=== PATIENT | female | born 1990 | race Caucasian/White ===

== ENCOUNTER → 2018-01-11 | Outpatient (REF) | payer BC ==
[2018-01-11 14:41] LABS: HCG, SERUM QUANTITATIVE 12608 MIU/ML
[2018-01-11 14:47] LABS: HEMATOCRIT 36.7 % (36.0-47.0); HEMOGLOBIN 12.6 g/dl (12.0-16.0); MEAN CORPUSCULAR HEMOGLOBIN 29.6 pg (27.0-33.0); MEAN CORPUSCULAR HGB CONC 34.3 g/dl (32.0-36.5); MEAN CORPUSCULAR VOLUME 86.2 fl (80.0-96.0); PLATELET COUNT, AUTOMATED 304 10^3/uL (150-450); RED BLOOD COUNT 4.26 10^6/uL (4.00-5.40); RED CELL DISTRIBUTION WIDTH 12.2 % (11.5-14.5); WHITE BLOOD COUNT 6.2 10^3/uL (4.0-10.0)
[2018-01-12 10:23] LABS: RUBELLA IgG QUALITATIVE IMMUNE (IMMUNE)
[2018-01-12 10:49] LABS: HEPATITIS B SURFACE ANTIGEN NEGATIVE (NEGATIVE)
[2018-01-12 10:53] LABS: HIV 1&2 SCREEN CENTAUR NEGATIVE (NEGATIVE)
== END ==
LOC: M LAB REF 13:19
DX: O36.80X0 Pregnancy with inconclusive fetal viability, not applicable or unspecified (principal); Z3A.00 Weeks of gestation of pregnancy not specified
CPT/HCPCS: 86762

== ENCOUNTER 2018-04-15 19:09 | Emergency (ER) | payer OTHER, BC, MEDICAID ==
[2018-04-15 20:40] LABS: APPEARANCE, URINE HAZY (CLEAR); BACTERIA, URINE AUTO 1+ (NEGATIVE); BILIRUBIN, URINE AUTO NEGATIVE (NEGATIVE); BLOOD, URINE BLOOD NEGATIVE (NEGATIVE); COLOR, URINE YELLOW (YELLOW); GLUCOSE, URINE (UA) AUTO NEGATIVE (NEGATIVE); KETONE, URINE AUTO NEGATIVE (NEGATIVE); LEUKOCYTE ESTERASE, URINE AUTO TRACE (NEGATIVE); MUCUS, URINE SMALL (NEGATIVE); NITRITE, URINE AUTO NEGATIVE (NEGATIVE); PROTEIN, URINE AUTO NEGATIVE (NEGATIVE); RBC, URINE AUTO 2 /HPF (0-3); SPECIFIC GRAVITY URINE AUTO 1.024 (1.002-1.035); SQUAMOUS EPITHELIAL CELL UR AU 1 /HPF (0-6); WBC, URINE AUTO 3 /HPF (0-3)
== END 2018-04-15 21:08 | disposition home or self-care (01) ==
LOC: M ED 19:09
DX: Z04.1 Encounter for examination and observation following transport accident (principal); O9A.212 Injury, poisoning and certain other consequences of external causes complicating pregnancy, second trimester; S70.00XA Contusion of unspecified hip, initial encounter; V43.62XA Car passenger injured in collision with other type car in traffic accident, initial encounter; Y92.410 Unspecified street and highway as the place of occurrence of the external cause; Z3A.19 19 weeks gestation of pregnancy
CPT/HCPCS: 76815

== ENCOUNTER → 2018-06-16 | Outpatient (CLI) | payer MEDICAID ==
[2018-06-16 11:43] LABS: HEMATOCRIT 31.1 % (36.0-47.0); HEMOGLOBIN 10.5 g/dl (12.0-15.5); MEAN CORPUSCULAR HEMOGLOBIN 29.7 pg (27.0-33.0); MEAN CORPUSCULAR HGB CONC 33.8 g/dl (32.0-36.5); MEAN CORPUSCULAR VOLUME 88.1 fl (80.0-96.0); PLATELET COUNT, AUTOMATED 230 10^3/uL (150-450); RED BLOOD COUNT 3.53 10^6/uL (4.00-5.40); RED CELL DISTRIBUTION WIDTH 12.4 % (11.5-14.5); WHITE BLOOD COUNT 7.5 10^3/uL (4.0-10.0)
[2018-06-16 13:10] LABS: GLUCOSE CHALLENGE TEST 1 HOUR 128 MG/DL (LESS THAN 140)
== END ==
LOC: M LAB 09:52
DX: Z36.89 Encounter for other specified antenatal screening (principal); Z3A.00 Weeks of gestation of pregnancy not specified
CPT/HCPCS: 82950

== ENCOUNTER → 2018-08-19 | Outpatient (REF) | payer MEDICAID | LOC: M LAB REF 12:54 | DX: Z34.83 Encounter for supervision of other normal pregnancy, third trimester (principal); Z3A.00 Weeks of gestation of pregnancy not specified | CPT/HCPCS: 87081 ==

== ENCOUNTER 2018-08-24 16:46 | Inpatient (IN) | payer MEDICAID ==
[2018-08-24] MEDS: miSOPROStol 50 MCG 1/2 TAB (S0191) PO ×2 (18:46→23:04)
[2018-08-24] MEDS: LACTATED RINGER'S 1000 ML IV (18:46)
[2018-08-24 18:47] LABS: HEMATOCRIT 31.9 % (36.0-47.0); HEMOGLOBIN 10.8 g/dl (12.0-15.5); MEAN CORPUSCULAR HEMOGLOBIN 28.3 pg (27.0-33.0); MEAN CORPUSCULAR HGB CONC 33.9 g/dl (32.0-36.5); MEAN CORPUSCULAR VOLUME 83.7 fl (80.0-96.0); PLATELET COUNT, AUTOMATED 267 10^3/uL (150-450); RED BLOOD COUNT 3.81 10^6/uL (4.00-5.40); WHITE BLOOD COUNT 8.5 10^3/uL (4.0-10.0)
[2018-08-24 19:02] LABS: APPEARANCE, URINE CLEAR (CLEAR); BACTERIA, URINE AUTO 2+ (NEGATIVE); BILIRUBIN, URINE AUTO NEGATIVE (NEGATIVE); BLOOD, URINE BLOOD NEGATIVE (NEGATIVE); COLOR, URINE YELLOW (YELLOW); GLUCOSE, URINE (UA) AUTO NEGATIVE (NEGATIVE); KETONE, URINE AUTO TRACE mg/dL (NEGATIVE); LEUKOCYTE ESTERASE, URINE AUTO NEGATIVE (NEGATIVE); MUCUS, URINE SMALL (NEGATIVE); NITRITE, URINE AUTO NEGATIVE (NEGATIVE); PROTEIN, URINE AUTO NEGATIVE (NEGATIVE); RBC, URINE AUTO 2 /HPF (0-3); SPECIFIC GRAVITY URINE AUTO 1.011 (1.002-1.035); SQUAMOUS EPITHELIAL CELL UR AU 0 /HPF (0-6); UROBILINOGEN, URINE AUTO 0.2 mg/dL (0.0-2.0); WBC, URINE AUTO 1 /HPF (0-3)
[2018-08-24 19:08] LABS: ALT/SGPT 11 U/L (12-78); AST/SGOT 7 U/L (7-37); BILIRUBIN,TOTAL 0.2 MG/DL (0.2-1.0); CREATININE FOR GFR 0.47 MG/DL (0.55-1.30); GLOMERULAR FILTRATION RATE > 60.0 (>60); URIC ACID 3.2 MG/DL (2.6-6.0)
[2018-08-24 20:34] LABS: LDH LACTATE DEHYDROGENASE 222 U/L (84-246)
[2018-08-25] MEDS: LR 1,000 ML IV ×2 (01:57→07:44)
[2018-08-25] MEDS: miSOPROStol 50 MCG 1/2 TAB (S0191) PO (03:52)
[2018-08-25] MEDS ORDERED: FENTANYL 2MCG/ML ROPIVACAINE 0.2% IN 0.9% NACL 200ML IVBAG As Ordered (05:30)
[2018-08-25] MEDS ORDERED: diphenhydrAMINE INJ 50MG/ML VIAL (J1200) IV (05:40)
[2018-08-25] MEDS ORDERED: NALOXONE INJ 0.4 MG/1 ML VIAL (J2310) IV (05:40)
[2018-08-25] MEDS ORDERED: EPIDURAL COMMENT XX (05:40)
[2018-08-25] MEDS ORDERED: EPIDURAL/PCA KEYS XX (05:40)
[2018-08-25] MEDS ORDERED: REFRIGERATOR IV KEYS XX (05:40)
[2018-08-25] MEDS ORDERED: LACTATED RINGER'S 1000 ML IV (05:40)
[2018-08-25] MEDS ORDERED: ONDANSETRON 4MG/2ML VIAL (J2405) IV (05:40)
[2018-08-25] MEDS: FENTANYL/ROPIVACAINE/NACL BAG 200 ML EPIDURAL (05:40)
[2018-08-25] MEDS: ePHEDrine SULFATE 25 MG/5 ML(5MG/ML) SYRINGE IV ×2 (07:09→07:12)
[2018-08-25] MEDS: OXYTOCIN DRIP 30 UNITS in APPROPRIATE DILUENT 1 EA IV ×2 (08:47→12:22)
[2018-08-25] MEDS ORDERED: METHYLERGONOVINE MALEATE 0.2 MG TAB PO (12:30)
[2018-08-25] MEDS ORDERED: RHOGAM 300 MCG (1500 IU) INJ (J2790) IM (12:30)
[2018-08-25] MEDS ORDERED: MEASLES,MUMPS,RUBELLA VACCINE INJ (MMR-II) (90707) SC (12:30)
[2018-08-25] MEDS ORDERED: DIBUCAINE 1% OINTMENT 30GM TOP (12:30)
[2018-08-25] MEDS ORDERED: ANUSOL HC CREAM 30GM TOP (12:30)
[2018-08-25] MEDS ORDERED: DOCUSATE SODIUM 100 MG CAP PO (12:30)
[2018-08-25] MEDS: IBUPROFEN 800 MG TAB PO (20:11)
[2018-08-26] MEDS: PRENATAL VITAMINS CHEWABLE TABLET PO (09:25)
[2018-08-26] MEDS: IBUPROFEN 800 MG TAB PO ×2 (09:33→17:55)
[2018-08-27] MEDS: PRENATAL VITAMINS CHEWABLE TABLET PO (07:35)
[2018-08-27] MEDS: ACETAMINOPHEN 500 MG TAB PO (07:35)
[2018-08-27] MEDS: INFLUENZA QUADRIVALENT PF VACCINE 0.5ML SYRINGE (90686) IM (08:39)
== END 2018-08-27 11:03 | disposition home or self-care (01) | DRG 560 ==
LOC: M LDO 16:46 → M OBS 08-25 15:13 → M LDI 17:38
PROC: 3E0P7GC Introduction of Other Therapeutic Substance into Female Reproductive, Via Natural or Artificial Opening (ICD-10-PCS; 2018-08-24)
PROC: 10E0XZZ Delivery of Products of Conception, External Approach (ICD-10-PCS; principal; 2018-08-25)
PROC: 0KQM0ZZ Repair Perineum Muscle, Open Approach (ICD-10-PCS; 2018-08-25)
DX: O41.03X0 Oligohydramnios, third trimester, not applicable or unspecified (principal); O70.1 Second degree perineal laceration during delivery; Z3A.37 37 weeks gestation of pregnancy; Z37.0 Single live birth

== ENCOUNTER 2018-09-30 09:40 | Inpatient (IN) | payer MEDICAID ==
[2018-09-30] MEDS: NS 1,000 ML IV (10:44)
[2018-09-30] MEDS: KETOROLAC 30 MG/ML VIAL (J1885) IV (10:44)
[2018-09-30] MEDS: ONDANSETRON 4MG/2ML VIAL (J2405) IV (10:45)
[2018-09-30 11:15] LABS: BASO % 0.2 % (0.0-1.0); HEMATOCRIT 36.9 % (36.0-47.0); HEMOGLOBIN 12.3 g/dl (12.0-15.5); IMMATURE GRANULOCYTE % 0.4 % (0-3.0); LYMPH # 0.9 10^3/uL (1.5-6.5); LYMPH % 6.8 % (24.0-44.0); MEAN CORPUSCULAR HEMOGLOBIN 27.3 pg (27.0-33.0); MEAN CORPUSCULAR HGB CONC 33.3 g/dl (32.0-36.5); MEAN CORPUSCULAR VOLUME 81.8 fl (80.0-96.0); MONO # 0.5 10^3/uL (0.0-0.8); MONO % 3.7 % (0.0-5.0); NEUTROPHILS # 12.1 10^3/uL (1.8-7.7); NEUTROPHILS % 88.9 % (36.0-66.0); PLATELET COUNT, AUTOMATED 311 10^3/uL (150-450); RED BLOOD COUNT 4.51 10^6/uL (4.00-5.40); RED CELL DISTRIBUTION WIDTH 12.5 % (11.5-14.5); WHITE BLOOD COUNT 13.6 10^3/uL (4.0-10.0)
[2018-09-30 11:40] LABS: APPEARANCE, URINE CLEAR (CLEAR); BACTERIA, URINE AUTO NEGATIVE (NEGATIVE); BILIRUBIN, URINE AUTO NEGATIVE (NEGATIVE); BLOOD, URINE BLOOD NEGATIVE (NEGATIVE); COLOR, URINE YELLOW (YELLOW); GLUCOSE, URINE (UA) AUTO NEGATIVE (NEGATIVE); KETONE, URINE AUTO TRACE mg/dL (NEGATIVE); LEUKOCYTE ESTERASE, URINE AUTO NEGATIVE (NEGATIVE); MUCUS, URINE SMALL (NEGATIVE); NITRITE, URINE AUTO NEGATIVE (NEGATIVE); PROTEIN, URINE AUTO 1+ mg/dL (NEGATIVE); RBC, URINE AUTO 0 /HPF (0-3); SPECIFIC GRAVITY URINE AUTO 1.021 (1.002-1.035); SQUAMOUS EPITHELIAL CELL UR AU 3 /HPF (0-6); UROBILINOGEN, URINE AUTO 0.2 mg/dL (0.0-2.0); WBC, URINE AUTO 1 /HPF (0-3)
[2018-09-30 11:46] LABS: ALBUMIN 3.8 GM/DL (3.2-5.2); ALKALINE PHOSPHATASE 87 U/L (45-117); ALT/SGPT 26 U/L (12-78); AMYLASE 52 U/L (25-115); ANION GAP 9 MEQ/L (8-16); AST/SGOT 15 U/L (7-37); BILIRUBIN,TOTAL 0.3 MG/DL (0.2-1.0); BLOOD UREA NITROGEN 8 MG/DL (7-18); C REACTIVE PROTEIN QUANTITATIV 1.13 MG/DL (0.00-0.30); CALCIUM LEVEL 9.3 MG/DL (8.5-10.1); CARBON DIOXIDE LEVEL 26 MEQ/L (21-32); CHLORIDE LEVEL 104 MEQ/L (98-107); CREATININE FOR GFR 0.76 MG/DL (0.55-1.30); GAMMA GLUTAMYLTRANSPEPTIDASE 11 U/L (5-55); GLOMERULAR FILTRATION RATE > 60.0 (>60); GLUCOSE, FASTING 140 MG/DL (70-100); LIPASE 118 U/L (73-393); POTASSIUM SERUM 3.5 MEQ/L (3.5-5.1); SODIUM LEVEL 139 MEQ/L (136-145); TOTAL PROTEIN 7.6 GM/DL (6.4-8.2)
[2018-09-30] MEDS ORDERED: ONDANSETRON 4MG/2ML VIAL (J2405) IV (15:30)
[2018-09-30] MEDS ORDERED: MORPHINE 4 MG/ML 1ML VIAL/SYRINGE (J2270) IV (15:30)
[2018-09-30] MEDS ORDERED: KETOROLAC 30 MG/ML VIAL (J1885) IV (15:30)
[2018-09-30] MEDS: LR 1,000 ML IV (17:59)
[2018-09-30] MEDS: AMPICILLIN SOD/SULBACTAM SOD 3 GM in D5W MINI-BAG PLUS 100 ML IV ×3 (18:00→23:58)
[2018-09-30 19:56] LABS: CONTROL LINE HCG INT CTR LINE PRESENT; HCG, SERUM QUALITATIVE NEGATIVE (NEGATIVE)
[2018-09-30] MEDS ORDERED: PROPOFOL 200 MG/20 ML VIAL As Ordered (22:39)
[2018-09-30] MEDS ORDERED: ROCURONIUM BROMIDE 50 MG/5 ML VIAL As Ordered (22:39)
[2018-09-30] MEDS ORDERED: MIDAZOLAM INJ 2 MG/2 ML VIAL (J2250) As Ordered (22:39)
[2018-09-30] MEDS ORDERED: LIDOCAINE 2% INJ 100 MG/5 ML SDV (FOR ANES.) As Ordered (22:39)
[2018-09-30] MEDS ORDERED: fentaNYL 100 MCG/2 ML INJECTION (J3010) As Ordered (22:40)
[2018-09-30] MEDS ORDERED: dexameTHASONE 4 MG/ML 1ML VIAL (J1100) As Ordered (22:45)
[2018-10-01] MEDS ORDERED: fentaNYL 250 MCG/5 ML INJECTION (J3010) As Ordered (00:06)
[2018-10-01] MEDS ORDERED: ONDANSETRON 4MG/2ML VIAL (J2405) As Ordered ×2 (00:06→01:55)
[2018-10-01] MEDS ORDERED: KETOROLAC 60 MG/2 ML VIAL (J1885) As Ordered (00:06)
[2018-10-01] MEDS ORDERED: SUGAMMADEX SODIUM 500 MG/5 ML VIAL (BRIDION) As Ordered (00:26)
[2018-10-01] MEDS ORDERED: LIDOCAINE 2% INJ 100 MG/5 ML SDV (FOR ANES.) As Ordered (00:27)
[2018-10-01] MEDS: BUPIVACAINE HCL 0.25% 30 ML VIAL As Ordered (01:07)
[2018-10-01] MEDS ORDERED: IBUPROFEN 400 MG TAB PO (01:30)
[2018-10-01] MEDS ORDERED: ACETAMINOPHEN TAB 650MG DOSE (2X325MG) PO (01:30)
[2018-10-01] MEDS ORDERED: HYDROMORPHONE HCL 0.5 MG/ 0.5 ML SYRINGE (J1170 PER 1) IV (01:45)
[2018-10-01] MEDS: LR 1,000 ML IV ×3 (01:45→10:25)
[2018-10-01] MEDS ORDERED: PERCOCET 5MG/325MG TAB PO (01:45)
[2018-10-01] MEDS ORDERED: fentaNYL 100 MCG/2 ML INJECTION (J3010) IV (01:45)
[2018-10-01] MEDS: ONDANSETRON 4MG/2ML VIAL (J2405) IV (01:55)
[2018-10-01] MEDS: NORCO, ANEXSIA 5/325MG TABLET (HYDROcodone/ACETAMINOPHEN) PO (11:22)
== END 2018-10-01 13:30 | disposition home or self-care (01) | DRG 263 ==
LOC: M ED 09:40 → M SDC 15:30 → M MSPAV 17:06
PROVIDERS: Surgery
PROC: 0FT44ZZ Resection of Gallbladder, Percutaneous Endoscopic Approach (ICD-10-PCS; principal; 2018-09-30 15:30)
DX: K81.0 Acute cholecystitis (principal)

== ENCOUNTER 2020-08-23 13:53 | Emergency (ER) | payer OTHER ==
[~2020-08-23] VITALS: Ht 167.6 cm; Wt 100.4 kg
[~2020-08-23 13:53] MED LIST: IBUP-1114 PO; MAPA500C PO; PRENTAB55 PO; VITMTA PO
[2020-08-23] MEDS ORDERED: NEXP1IMP SC (14:03)
[2020-08-23] MEDS ORDERED: ICY5PAD2 TOP (14:13)
[2020-08-23] MEDS ORDERED: LIDOCAINE 5% (LIDODERM) PATCH TD ONE (15:00)
[2020-08-23] MEDS ORDERED: methylPREDNISolone 125MG 2ML VIAL IM ONE (15:00)
[2020-08-23] MEDS ORDERED: KETOROLAC 60MG 2ML VIAL IM ONE (15:00)
[2020-08-23] MEDS ORDERED: CYCL-707 PO (15:54)
[2020-08-23] MEDS ORDERED: GABAPENTIN 300 MG CAP PO ONE (16:00)
[2020-08-23] MEDS ORDERED: NORCO, ANEXSIA 5/325MG TABLET (HYDROcodone/ACETAMINOPHEN) PO ONE (16:00)
[2020-08-23 16:13] VITALS: BP 121/79
[2020-08-23] MEDS ORDERED: **NOTE PATIENT COMMENT** MISC XX SCH (21:00)
== END 2020-08-23 16:21 | disposition home or self-care (01) ==
LOC: M ED 13:53 → MERGE 13:53 → M ED 16:21
DX: M54.5 Low back pain (principal); Z91.030 Bee allergy status; Z91.018 Allergy to other foods
CPT/HCPCS: 96372; 99283; J1885; J2930

== ENCOUNTER → 2020-09-20 | Outpatient (REF) | payer OTHER ==
[~2020-09-20] MED LIST changes: +CYCL-707 PO; +ICY5PAD2 TOP; +NEXP1IMP SC
[2020-09-20 13:48] LABS: BASO % 0.5 % (0.0-1.0); EOS # 0.2 10^3/uL (0.0-0.5); EOS % 2.4 % (0.0-3.0); HEMATOCRIT 37.1 % (36.0-47.0); HEMOGLOBIN 12.2 g/dl (12.0-15.5); LYMPH # 1.8 10^3/uL (1.5-5.0); LYMPH % 27.7 % (24.0-44.0); MEAN CORPUSCULAR HGB CONC 32.9 g/dl (32.0-36.5); MEAN CORPUSCULAR VOLUME 88.3 fl (80.0-96.0); MONO # 0.6 10^3/uL (0.0-0.8); NEUTROPHILS # 3.8 10^3/uL (1.5-8.5); NEUTROPHILS % 59.1 % (36.0-66.0); PLATELET COUNT, AUTOMATED 333 10^3/uL (150-450); WHITE BLOOD COUNT 6.4 10^3/uL (4.0-10.0)
[2020-09-20 14:05] LABS: ALBUMIN 4.2 GM/DL (3.2-5.2); ALT/SGPT 40 U/L (12-78); BILIRUBIN,TOTAL 0.3 MG/DL (0.2-1.0); BLOOD UREA NITROGEN 12 MG/DL (7-18); CALCIUM LEVEL 9.3 MG/DL (8.5-10.1); CARBON DIOXIDE LEVEL 26 MEQ/L (21-32); CHLORIDE LEVEL 107 MEQ/L (98-107); CHOLESTEROL LEVEL 171 MG/DL (<200); CHOLESTEROL RISK RATIO 3.226 (<5); CREATININE FOR GFR 0.83 MG/DL (0.55-1.30); GLOMERULAR FILTRATION RATE > 60.0 (>60); GLUCOSE, FASTING 106 MG/DL (70-100); HDL CHOLESTEROL 53 MG/DL (>40); LDL CHOLESTEROL 98 MG/DL (<100); NON-HDL-C 118 MG/DL; POTASSIUM SERUM 4.1 MEQ/L (3.5-5.1); SODIUM LEVEL 138 MEQ/L (136-145); TOTAL PROTEIN 7.2 GM/DL (6.4-8.2); TRIGLYCERIDES LEVEL 99 MG/DL (<150)
[2020-09-20 14:07] LABS: TOTAL 25(OH) VITAMIN D 16.3 NG/ML (30.0-100.0)
== END ==
LOC: M LAB REF 12:36
PROVIDERS: ATTEND Physician Assistant
DX: E55.9 Vitamin D deficiency, unspecified (principal); E78.5 Hyperlipidemia, unspecified; R94.6 Abnormal results of thyroid function studies

== ENCOUNTER → 2021-01-29 | Outpatient (REF) | payer MEDICAID, OTHER, SELFPAY | LOC: M LAB REF 16:28 | PROVIDERS: ATTEND Physician Assistant | DX: E55.9 Vitamin D deficiency, unspecified (principal) ==

== ENCOUNTER → 2021-02-13 | Outpatient (REF) | payer OTHER ==
[2021-02-13 17:25] LABS: ALBUMIN 4.1 GM/DL (3.2-5.2); ALT/SGPT 41 U/L (12-78); BASO # 0.1 10^3/uL (0.0-0.2); BASO % 0.8 % (0.0-1.0); BILIRUBIN,TOTAL 0.3 MG/DL (0.2-1.0); BLOOD UREA NITROGEN 12 MG/DL (7-18); CALCIUM LEVEL 9.8 MG/DL (8.5-10.1); CARBON DIOXIDE LEVEL 29 MEQ/L (21-32); CHLORIDE LEVEL 107 MEQ/L (98-107); CREATININE FOR GFR 0.78 MG/DL (0.55-1.30); EOS # 0.1 10^3/uL (0.0-0.5); EOS % 1.8 % (0.0-3.0); GLOMERULAR FILTRATION RATE > 60.0 (>60); GLUCOSE, FASTING 100 MG/DL (70-100); HEMATOCRIT 41.3 % (36.0-47.0); HEMOGLOBIN 13.6 g/dl (12.0-15.5); LYMPH % 26.2 % (24.0-44.0); MEAN CORPUSCULAR HEMOGLOBIN 28.3 pg (27.0-33.0); MEAN CORPUSCULAR HGB CONC 32.9 g/dl (32.0-36.5); MEAN CORPUSCULAR VOLUME 85.9 fl (80.0-96.0); MONO # 0.7 10^3/uL (0.0-0.8); MONO % 8.8 % (2.0-8.0); NEUTROPHILS # 4.8 10^3/uL (1.5-8.5); NEUTROPHILS % 62.1 % (36.0-66.0); PLATELET COUNT, AUTOMATED 314 10^3/uL (150-450); RED BLOOD COUNT 4.81 10^6/uL (4.00-5.40); SODIUM LEVEL 141 MEQ/L (136-145); THYROID STIMULATING HORMONE 0.698 uIU/ML (0.358-3.740); TOTAL PROTEIN 7.5 GM/DL (6.4-8.2); WHITE BLOOD COUNT 7.7 10^3/uL (4.0-10.0)
== END ==
LOC: M LAB REF 16:17
PROVIDERS: ATTEND Physician Assistant
DX: R14.0 Abdominal distension (gaseous) (principal); R94.6 Abnormal results of thyroid function studies

== ENCOUNTER → 2021-03-12 | Outpatient (CLI) | payer OTHER ==
--- NOTE | 2021-03-12 11:18 | PFTRPT ---
Site: [facility], [address] [place] [address], [id number] ID: [id number] Name: TC MAO Visit Date: 03/12/2021 Second ID: [id number] Referring Doctor: Inocencia Quiñones Reviewing Doctor: Mariano Medina MD Second Chef: Bernard WESTFALL RRT Age: 30 : 1990 Sex: Female Race: Height: 66.00 Inches Weight: 220.00 Lbs BSA: 2.08 Order IDs: [id number] Requested Test(s): <RESP-PFT.PFT B/A> Diagnosis: R06.00 test meet the ATS standards for acceptability and repeatability. Pt was given four puffs of albuterol for post bronchodilator. Review Status: Not Reviewed Pre-Bronch Post-Bronch Pred Actual %Pred Actual %Chng SPIROMETRY FVC (L) 4.02 3.43 85 3.47 1 FEV1 (L) 3.37 3.00 89 3.09 3 FEV1/FVC (%) 84 88 104 89 1 FEF 25% (L/sec) 5.89 5.95 101 5.51 -7 FEF 50% (L/sec) 4.48 4.31 96 4.35 FEF 75% (L/sec) 1.88 1.88 99 2.49 32 FEF 25-75% (L/sec) 3.55 3.76 106 3.95 4 FEF Max (L/sec) 7.32 5.96 81 5.57 -6 FIVC (L) 3.53 3.54 FIF 50% (L/sec) 4.39 3.77 85 3.08 -18 FIF Max (L/sec) 4.34 3.48 -19 MVV (L/min) 112 81 72 Expiratory Time (sec) 6.53 6.62 1 Back Extrap Vol (L) 0.12 0.10 -13 Time To FEFmax (sec) 0.136 0.127 -7 LUNG VOLUMES SVC (L) 3.85 3.46 89 IC (L) 2.40 2.98 124 ERV (L) 1.45 0.48 33 TGV (L) 2.95 1.66 56 RV (Pleth) (L) 1.50 1.18 78 TLC (Pleth) (L) 5.35 4.64 86 RV/TLC (Pleth) (%) 27 25 93 DIFFUSION DLCOunc (ml/min/mmHg) 25.69 19.04 74 DL/VA (ml/min/mmHg/L) 4.80 4.19 87 VA (L) 5.35 4.54 84 BHT (sec) 9.84 IVC (L) 3.43 TLC (SB) (L) 4.69 AIRWAYS RESISTANCE Raw (cmH2O/L/s) 1.86 0.75 40 Gaw (L/s/cmH2O) 1.03 1.36 131 sRaw (cmH2O*s) 4.76 1.44 30 sGaw (1/cmH2O*s) 0.20 0.71 354
== END ==
LOC: M CARPUL 10:38
PROVIDERS: ATTEND Physician Assistant
DX: R06.00 Dyspnea, unspecified (principal)

== ENCOUNTER → 2021-03-21 | Outpatient (CLI) | payer OTHER ==
--- NOTE | 2021-03-21 10:14 | REP ---
INDICATION: ESSENTIAL (PRIMARY) HYPERTENSION COMPARISON: 09/20/2014 TECHNIQUE: PA and lateral. FINDINGS: The mediastinum and cardiac silhouette are normal. The lung browning are clear and without acute consolidation, effusion, or pneumothorax. The skeletal structures are intact and normal. IMPRESSION: No acute cardiopulmonary process. <Electronically signed by Gagan Irvin > 03/21/21 1010
== END ==
LOC: M LAB 09:54 → M RAD 09:54
PROVIDERS: ATTEND Physician Assistant
DX: R06.00 Dyspnea, unspecified (principal)

== ENCOUNTER → 2021-04-14 | Outpatient (CLI) | payer OTHER ==
[2021-04-14 13:12] LABS: ALBUMIN 3.7 GM/DL (3.2-5.2); ALT/SGPT 46 U/L (12-78); BILIRUBIN,TOTAL 0.4 MG/DL (0.2-1.0); BLOOD UREA NITROGEN 9 MG/DL (7-18); CARBON DIOXIDE LEVEL 27 MEQ/L (21-32); CHLORIDE LEVEL 107 MEQ/L (98-107); CREATININE FOR GFR 0.77 MG/DL (0.55-1.30); GLOMERULAR FILTRATION RATE > 60.0 (>60); GLUCOSE, FASTING 96 MG/DL (70-100); NT-PRO BNP 18 PG/ML (<125); RHEUMATOID FACTOR QUANT < 10.0 IU/ML (<15.0); SODIUM LEVEL 139 MEQ/L (136-145)
== END ==
LOC: M LAB 11:05
PROVIDERS: ATTEND Physician Assistant
DX: R60.0 Localized edema (principal)

== ENCOUNTER 2021-07-04 03:09 | Emergency (ER) | payer OTHER, MEDICAID ==
[~2021-07-04] VITALS: Ht 167.6 cm; Wt 104.1 kg
[2021-07-04] MEDS ORDERED: MULTTAB20 PO (03:21)
[2021-07-04 08:47] LABS: BASO % 0.4 % (0.0-1.0); EOS # 0.2 10^3/uL (0.0-0.5); EOS % 1.9 % (0.0-3.0); HEMATOCRIT 39.5 % (36.0-47.0); HEMOGLOBIN 13.2 g/dl (12.0-15.5); LYMPH # 2.3 10^3/uL (1.5-5.0); LYMPH % 25.1 % (24.0-44.0); MEAN CORPUSCULAR HEMOGLOBIN 29.1 pg (27.0-33.0); MEAN CORPUSCULAR HGB CONC 33.4 g/dl (32.0-36.5); MEAN CORPUSCULAR VOLUME 87.2 fl (80.0-96.0); MONO % 11.3 % (2.0-8.0); NEUTROPHILS # 5.5 10^3/uL (1.5-8.5); NEUTROPHILS % 61.1 % (36.0-66.0); PLATELET COUNT, AUTOMATED 269 10^3/uL (150-450); RED BLOOD COUNT 4.53 10^6/uL (4.00-5.40)
[2021-07-04 09:15] LABS: ALBUMIN 3.7 GM/DL (3.2-5.2); ALT/SGPT 50 U/L (12-78); BILIRUBIN,DIRECT 0.1 MG/DL (0.0-0.2); BILIRUBIN,TOTAL 0.3 MG/DL (0.2-1.0); BLOOD UREA NITROGEN 7 MG/DL (7-18); CALCIUM LEVEL 9.2 MG/DL (8.5-10.1); CARBON DIOXIDE LEVEL 27 MEQ/L (21-32); CHLORIDE LEVEL 108 MEQ/L (98-107); CREATININE FOR GFR 0.67 MG/DL (0.55-1.30); GLOMERULAR FILTRATION RATE > 60.0 (>60); GLUCOSE, FASTING 104 MG/DL (70-100); LIPASE 172 U/L (73-393); POTASSIUM SERUM 4.1 MEQ/L (3.5-5.1); SODIUM LEVEL 140 MEQ/L (136-145); TOTAL PROTEIN 7.2 GM/DL (6.4-8.2)
[2021-07-04 09:53] LABS: HCG, SERUM QUANTITATIVE 24498 MIU/ML
--- NOTE | 2021-07-04 10:04 | REP ---
INDICATION: R pelvic pain, 7 weeks, h/o ovarian cysts. COMPARISON: None. TECHNIQUE: Transvesical and transvaginal scanning FINDINGS: Multiple sonographic images show an intrauterine anechoic structure with increased echoes surrounding it consistent with a decidual reaction. Within the gestational sac there is echogenic material consistent with a pole the mean crown-rump length measurement of which is consistent with a 6 week 0 day gestational age. Based on that the estimated date of delivery is 02/27/2022. Doppler interrogation of the pole shows a heart rate of 123 beats per minute. Within the gestational sac there is a tiny anechoic structure consistent with a yolk sac. IMPRESSION: Early OB ultrasound as described above. <Electronically signed by Yonis Molina > 07/04/21 1007
[2021-07-04 11:41] VITALS: BP 112/55
== END 2021-07-04 11:43 | disposition home or self-care (01) ==
LOC: M ED 03:09
DX: O26.91 Pregnancy related conditions, unspecified, first trimester (principal); O99.211 Obesity complicating pregnancy, first trimester; Z3A.01 Less than 8 weeks gestation of pregnancy; Z91.030 Bee allergy status; Z91.018 Allergy to other foods; Z87.42 Personal history of other diseases of the female genital tract; Z87.19 Personal history of other diseases of the digestive system; Z98.890 Other specified postprocedural states; Z86.16 Personal history of COVID-19; Z80.41 Family history of malignant neoplasm of ovary; Z84.2 Family history of other diseases of the genitourinary system

== ENCOUNTER 2021-07-29 23:07 | Emergency (ER) | payer OTHER, MEDICAID ==
[~2021-07-29] VITALS: Ht 167.6 cm; Wt 105.0 kg
[2021-07-29 23:07] VITALS: BP 161/90
[~2021-07-29 23:07] MED LIST changes: +MULTTAB20 PO
[2021-07-30] MEDS ORDERED: ARNU1INH INH (00:09)
[2021-07-30] MEDS ORDERED: ALBU8.5H INH (00:09)
[2021-07-30 00:39] LABS: BASO # 0.1 10^3/uL (0.0-0.2); BASO % 0.5 % (0.0-1.0); EOS # 0.1 10^3/uL (0.0-0.5); EOS % 1.2 % (0.0-3.0); HEMATOCRIT 36.7 % (36.0-47.0); HEMOGLOBIN 12.6 g/dl (12.0-15.5); LYMPH # 2.4 10^3/uL (1.5-5.0); LYMPH % 22.9 % (24.0-44.0); MEAN CORPUSCULAR HEMOGLOBIN 29.2 pg (27.0-33.0); MEAN CORPUSCULAR HGB CONC 34.3 g/dl (32.0-36.5); MEAN CORPUSCULAR VOLUME 85.2 fl (80.0-96.0); MONO # 0.9 10^3/uL (0.0-0.8); MONO % 8.8 % (2.0-8.0); NEUTROPHILS % 66.3 % (36.0-66.0); PLATELET COUNT, AUTOMATED 311 10^3/uL (150-450); RED BLOOD COUNT 4.31 10^6/uL (4.00-5.40); WHITE BLOOD COUNT 10.6 10^3/uL (4.0-10.0)
[2021-07-30 00:44] LABS: APPEARANCE, URINE CLEAR (CLEAR); BACTERIA, URINE AUTO NEGATIVE (NEGATIVE); BILIRUBIN, URINE AUTO NEGATIVE (NEGATIVE); BLOOD, URINE BLOOD 2+ (NEGATIVE); COLOR, URINE STRAW (YELLOW); GLUCOSE, URINE (UA) AUTO NEGATIVE (NEGATIVE); KETONE, URINE AUTO NEGATIVE (NEGATIVE); LEUKOCYTE ESTERASE, URINE AUTO NEGATIVE (NEGATIVE); NITRITE, URINE AUTO NEGATIVE (NEGATIVE); PROTEIN, URINE AUTO NEGATIVE (NEGATIVE); RBC, URINE AUTO 1 /HPF (0-3); SPECIFIC GRAVITY URINE AUTO 1.003 (1.002-1.035); SQUAMOUS EPITHELIAL CELL UR AU 0 /HPF (0-6); UROBILINOGEN, URINE AUTO 0.2 mg/dL (0.0-2.0); WBC, URINE AUTO 0 /HPF (0-3)
--- NOTE | 2021-07-30 01:33 | REPVR ---
PROCEDURE INFORMATION: Exam: US First Trimester, Transabdominal and US Duplex Artery and Vein, Ovaries, Complete Exam date and time: 07/30/2021 12:48 AM Age: 31 years old Clinical indication: Lmp or gestational age (in weeks): 05/15/21; Antepartum complications; Bleeding; ; Additional info: Vaginal bleeding TECHNIQUE: Imaging protocol: Real-time transabdominal obstetrical ultrasound of the maternal pelvis and a first trimester , less than 14 weeks 0 days, with image documentation. Real-time duplex ultrasound scan of the arterial and venous flow of the ovaries with B-mode, color Doppler flow and spectral waveform analysis, complete duplex. COMPARISON: No relevant prior studies available. FINDINGS: Gestation: Single viable intrauterine gestation. Embryonic/ heart rate: heart rate is 174 bpm. Extra-embryonic membranes/Placenta: Unremarkable. No subchorionic bleed. Amniotic fluid: Amniotic fluid/chorionic fluid is normal for gestational age. BIOMETRY: Gestational age (AUA): Sonographically estimated gestational age is 10 weeks 1 day. Estimated due date (AUA): Estimated date of delivery is 02/24/2022. [place]-Rump length: [place]-rump length of the pole is 3.3 cm. MATERNAL: Uterus: Unremarkable. Cervix: Unremarkable. Right adnexa: Right ovary is obscured by bowel gas. Left adnexa: Left ovary measures 2 x 2.8 x 2.3 cm. Normal waveforms. Intraperitoneal space: No intraperitoneal free fluid. IMPRESSION: Single viable intrauterine gestation 10 weeks 1 day of age. No evidence of left ovarian torsion. Right ovary is obscured by bowel gas. Electronically signed by: Renny Hernadez On 07/30/2021 01:32:29 AM
[2021-07-30 03:02] LABS: BLOOD UREA NITROGEN 7 MG/DL (7-18); CALCIUM LEVEL 9.1 MG/DL (8.5-10.1); CARBON DIOXIDE LEVEL 25 MEQ/L (21-32); CHLORIDE LEVEL 105 MEQ/L (98-107); GLOMERULAR FILTRATION RATE > 60.0 (>60); GLUCOSE, FASTING 93 MG/DL (70-100); HCG, SERUM QUANTITATIVE 80776 MIU/ML; POTASSIUM SERUM 3.8 MEQ/L (3.5-5.1); SODIUM LEVEL 137 MEQ/L (136-145)
== END 2021-07-30 03:20 | disposition home or self-care (01) ==
LOC: M ED 23:07
DX: O26.851 Spotting complicating pregnancy, first trimester (principal); Z3A.10 10 weeks gestation of pregnancy; O99.511 Diseases of the respiratory system complicating pregnancy, first trimester; J45.909 Unspecified asthma, uncomplicated; Z79.51 Long term (current) use of inhaled steroids

== ENCOUNTER → 2021-08-04 | Outpatient (CLI) | payer OTHER, MEDICAID ==
[~2021-08-04] MED LIST changes: +ALBU8.5H INH; +ARNU1INH INH
--- NOTE | 2021-08-04 10:40 | REP ---
INDICATION: PREG, DATING/VIABILITY 1ST TRIMESTER COMPARISON: 07/30/2021 TECHNIQUE: Transabdominal 1st trimester obstetrical ultrasound with color Doppler evaluation. FINDINGS: Single live early intrauterine is appreciated. Gestational sac with yolk sac and pole identified. [place]-rump length of 4.2 cm corresponds to 11 weeks 1 day gestational age with estimated date of delivery 02/22/2022. heart rate equals 160 beats per minute. No gross abnormalities are identified. IMPRESSION: Single live early intrauterine at 11 weeks 1 day gestational age. Complete anatomical assessment should be performed and 19-20 weeks. <Electronically signed by Gagan Irvin > 08/04/21 1038
[2021-08-04 11:18] LABS: APPEARANCE, URINE CLEAR (CLEAR); BACTERIA, URINE AUTO NEGATIVE (NEGATIVE); BILIRUBIN, URINE AUTO NEGATIVE (NEGATIVE); BLOOD, URINE BLOOD NEGATIVE (NEGATIVE); COLOR, URINE STRAW (YELLOW); GLUCOSE, URINE (UA) AUTO NEGATIVE (NEGATIVE); KETONE, URINE AUTO NEGATIVE (NEGATIVE); LEUKOCYTE ESTERASE, URINE AUTO NEGATIVE (NEGATIVE); MUCUS, URINE SMALL (NEGATIVE); NITRITE, URINE AUTO NEGATIVE (NEGATIVE); PROTEIN, URINE AUTO NEGATIVE (NEGATIVE); RBC, URINE AUTO 1 /HPF (0-3); SPECIFIC GRAVITY URINE AUTO 1.002 (1.002-1.035); SQUAMOUS EPITHELIAL CELL UR AU 0 /HPF (0-6); UROBILINOGEN, URINE AUTO 0.2 mg/dL (0.0-2.0); WBC, URINE AUTO 1 /HPF (0-3)
[2021-08-04 11:19] LABS: HEMOGLOBIN 12.2 g/dl (12.0-15.5); MEAN CORPUSCULAR HEMOGLOBIN 29.5 pg (27.0-33.0); MEAN CORPUSCULAR HGB CONC 33.9 g/dl (32.0-36.5); MEAN CORPUSCULAR VOLUME 87.2 fl (80.0-96.0); PLATELET COUNT, AUTOMATED 278 10^3/uL (150-450); RED BLOOD COUNT 4.13 10^6/uL (4.00-5.40); WHITE BLOOD COUNT 7.7 10^3/uL (4.0-10.0)
[2021-08-04 13:05] LABS: HEPATITIS B SURFACE ANTIGEN NEGATIVE (NEGATIVE); HIV 1&2 SCREEN CENTAUR NEGATIVE (NEGATIVE)
== END ==
LOC: M RAD 10:10
PROVIDERS: ATTEND Nurse Practitioner Adult Health
DX: Z34.81 Encounter for supervision of other normal pregnancy, first trimester (principal); Z36.89 Encounter for other specified antenatal screening; Z3A.11 11 weeks gestation of pregnancy

== ENCOUNTER → 2021-08-25 | Outpatient (CLI) | payer OTHER, MEDICAID ==
[2021-08-25 12:47] LABS: FREE T4 1.08 NG/DL (0.76-1.46); THYROID STIMULATING HORMONE 1.72 uIU/ML (0.358-3.740)
== END ==
LOC: M LAB 11:27
PROVIDERS: ATTEND Obstetrics & Gynecology Obstetrics
DX: Z34.81 Encounter for supervision of other normal pregnancy, first trimester (principal); Z3A.00 Weeks of gestation of pregnancy not specified

== ENCOUNTER 2021-11-11 16:03 | Emergency (ER) | payer OTHER, MEDICAID ==
[~2021-11-11] VITALS: Ht 167.6 cm; Wt 103.2 kg
[2021-11-11 21:47] VITALS: BP 138/89
== END 2021-11-11 21:50 | disposition home or self-care (01) ==
LOC: M ED 16:03
DX: U07.1 COVID-19 (principal); O98.512 Other viral diseases complicating pregnancy, second trimester; Z3A.25 25 weeks gestation of pregnancy; Z91.018 Allergy to other foods; Z91.030 Bee allergy status

== ENCOUNTER 2022-01-13 20:18 | Outpatient (CLI) | payer OTHER, MEDICAID ==
[~2022-01-13] VITALS: Ht 167.6 cm; Wt 103.9 kg
== END 2022-01-13 21:50 | disposition home or self-care (01) ==
LOC: M LDO 20:18
PROVIDERS: ATTEND Obstetrics & Gynecology
DX: O36.8130 Decreased fetal movements, third trimester, not applicable or unspecified (principal); Z3A.36 36 weeks gestation of pregnancy
CPT/HCPCS: 59025; 76815; G0463

== ENCOUNTER → 2024-04-28 | Outpatient (CLI) | payer MEDICAID, OTHER ==
[~2024-04-28] MED LIST changes: +ETON68IM SC; -NEXP1IMP SC
== END ==
LOC: M SLEEP HO 11:31
PROVIDERS: ATTEND Nurse Practitioner Family
DX: G47.33 Obstructive sleep apnea (adult) (pediatric) (principal); R53.83 Other fatigue

== ENCOUNTER → 2024-06-06 | Outpatient (REF) | payer OTHER, MEDICAID ==
[2024-06-06 14:26] LABS: CHOLESTEROL RISK RATIO 4.55 (<5); HDL CHOLESTEROL 41.3 MG/DL (>40); LDL CHOLESTEROL 110.9 MG/DL (<100); NON-HDL-C 146.7 MG/DL
== END ==
LOC: M LAB REF 13:33
PROVIDERS: ATTEND Nurse Practitioner Family
DX: E78.1 Pure hyperglyceridemia (principal)

== ENCOUNTER → 2024-08-29 | Outpatient (REF) | payer OTHER | LOC: M LAB REF 16:20 | PROVIDERS: ATTEND Nurse Practitioner Family | DX: J06.9 Acute upper respiratory infection, unspecified (principal) ==

== ENCOUNTER → 2024-11-14 | Outpatient (CLI) | payer OTHER ==
[~2024-11-14] MED LIST changes: +METHACHOLINE KIT (6 VIAL.NEB PREMIX) INH ONE
== END ==
LOC: M CARPUL 08:51
PROVIDERS: ATTEND Nurse Practitioner Adult Health
DX: R06.02 Shortness of breath (principal)
CPT/HCPCS: 94070; J7674

== ENCOUNTER → 2025-07-12 | Outpatient (REF) | payer OTHER, MEDICAID ==
[~2025-07-12] MED LIST changes: -METHACHOLINE KIT (6 VIAL.NEB PREMIX) INH ONE
[2025-07-12 17:17] LABS: BASO # 0.0 10^3/uL (0.0-0.2); BASO % 0.6 % (0.0-1.0); EOS # 0.1 10^3/uL (0.0-0.5); EOS % 2.1 % (0.0-3.0); LYMPH # 2.0 10^3/uL (1.5-5.0); LYMPH % 28.6 % (24.0-44.0); MONO # 0.7 10^3/uL (0.0-0.8); MONO % 9.7 % (2.0-8.0); NEUTROPHILS # 4.0 10^3/uL (1.5-8.5); NEUTROPHILS % 58.7 % (36.0-66.0); PLATELET COUNT, AUTOMATED 310 10^3/uL (150-450)
[2025-07-12 17:29] LABS: ERYTHROCYTE SEDIMENTATION RATE 11 mm/hr (0-20)
[2025-07-12 17:35] LABS: CALCIUM LEVEL 9.4 MG/DL (8.5-10.1); CARBON DIOXIDE LEVEL 27 MMOL/L (20-31); CHLORIDE LEVEL 105 MMOL/L (98-107); CREATININE FOR GFR 0.73 MG/DL (0.55-1.30); GLOMERULAR FILTRATION RATE > 90.0 (>60); IRON (FE) 64 UG/DL (50-170); MAGNESIUM LEVEL 1.9 MG/DL (1.8-2.4); POTASSIUM SERUM 3.8 MMOL/L (3.5-5.1); SODIUM LEVEL 144 MMOL/L (136-145)
[2025-07-12 17:38] LABS: VITAMIN B12 LEVEL 553 PG/ML (211-911)
== END ==
LOC: M LAB REF 16:18
PROVIDERS: ATTEND Nurse Practitioner Family
DX: G44.209 Tension-type headache, unspecified, not intractable (principal)

== ENCOUNTER → 2025-10-11 | Outpatient (REF) | payer OTHER, MEDICAID | LOC: M LAB REF 15:11 | PROVIDERS: ATTEND Nurse Practitioner Family | DX: J06.9 Acute upper respiratory infection, unspecified (principal) ==